=== PATIENT | female | born 1985 | race Caucasian/White ===

== ENCOUNTER 2023-03-12 12:00 | Outpatient (CLI) | payer MEDICAID ==
[2023-03-12 21:33] LABS: BACTERIAL VAGINOSIS DNA NEGATIVE (NEGATIVE); CANDIDA GLABRATA DNA NEGATIVE (NEGATIVE); CANDIDA GROUP DNA NEGATIVE (NEGATIVE); CANDIDA KRUSEI DNA NEGATIVE (NEGATIVE); TRICHOMONAS VAGINALIS DNA NEGATIVE (NEGATIVE)
[2023-03-12 23:25] LABS: NEISSERIA GONORRHOEAE DNA NEGATIVE (NEGATIVE)
[2023-03-12 23:51] LABS: CHLAMYDIA TRACHOMATIS DNA POSITIVE (NEGATIVE)
[2023-03-13 05:12] LABS: HCV AB Non Reactive (Non Reactive); HIV SCREEN 4TH GENERATION Non Reactive (Non Reactive)
[2023-03-13 07:10] LABS: HSV 1 IGG TYPE SPEC <0.91 index (0.00-0.90); HSV 2 IGG TYPE SPEC 1.53 index (0.00-0.90)
[2023-03-13 08:10] LABS: RPR Non Reactive (Non Reactive)
== END 2023-03-12 12:15 | disposition home or self-care (01) ==
LOC: LAB.N 12:00
PROVIDERS: ATTEND Nurse Practitioner
DX: N76.0 Acute vaginitis (principal); Z11.3 Encounter for screening for infections with a predominantly sexual mode of transmission
CPT/HCPCS: 36415; 81514; 86592; 86695; 86696; 86803; 87070; 87389; 87491; 87591; 87661

== ENCOUNTER 2023-10-23 10:15 | Outpatient (CLI) | payer MEDICAID ==
--- NOTE | 2023-10-23 11:20 | XRAY Report ---
PROCEDURE: Chest 2V INDICATIONS: ACUTE COUGH TECHNIQUE: 2 views of the chest were acquired. COMPARISON: None. FINDINGS: Surgical changes and devices: Orthopedic plate projects over the left clavicle. Lungs and pleura: No pleural effusions or pneumothorax. Lungs are clear. Mediastinum: Mediastinal contours appear normal. Heart size is normal. Bones and chest wall: No suspicious bony lesions. Overlying soft tissues appear unremarkable. IMPRESSION: No acute cardiopulmonary process. Reviewed by: Jeffery Keys MD on 10/23/2023 11:19 AM PDT Approved by: Jeffery Kyes MD on 10/23/2023 11:19 AM PDT Station ID: [id number]
== END 2023-10-23 10:30 | disposition home or self-care (01) ==
LOC: DI.N 10:15
PROVIDERS: ATTEND Physician Assistant Medical
DX: R05.1 Acute cough (principal)